=== PATIENT | male | born 1960 | race Caucasian/White ===

== ENCOUNTER 2017-05-31 15:28 | Outpatient (CLI) | payer OTHER ==
[~2017-05-31 15:28] MED LIST: AVAPRO150 MG PO; CATAFLAM50 MG PO; GLUCOPHAGE XR500 MG PO; MILLIPRED DP5 M1 PO; MOTRIN800 MG PO; NABUMETONE500 MG PO; ORPH100T PO; PERCOCET 5/3251 TAB PO; [UNRECOGNIZED DRUG - OTHER] PO
== END 2017-05-31 15:40 | disposition home or self-care (01) ==
LOC: RAD 501 15:28
DX: M17.11 Unilateral primary osteoarthritis, right knee (principal)

== ENCOUNTER 2017-08-17 12:43 | Outpatient (CLI) | payer OTHER | END 2017-08-17 13:01 | disposition home or self-care (01) | LOC: LAB 12:43 | DX: Z13.29 Encounter for screening for other suspected endocrine disorder (principal); E08.9 Diabetes mellitus due to underlying condition without complications; R80.8 Other proteinuria ==

== ENCOUNTER 2017-08-17 12:58 | Outpatient (CLI) | payer OTHER | END 2017-08-17 13:31 | disposition home or self-care (01) | LOC: SONOGRAMA 12:58 → MAMO-SONO 08-18 08:15 | DX: R80.8 Other proteinuria (principal); E08.9 Diabetes mellitus due to underlying condition without complications; Z13.29 Encounter for screening for other suspected endocrine disorder ==

== ENCOUNTER → 2017-10-18 | Outpatient (CLI) | payer OTHER | END | disposition home or self-care (01) | LOC: NUCLEAR 10-14 08:00 | DX: E05.00 Thyrotoxicosis with diffuse goiter without thyrotoxic crisis or storm (principal) | CPT/HCPCS: 78012; A9531 ==

== ENCOUNTER → 2017-10-19 | Outpatient (CLI) | payer OTHER | END | disposition home or self-care (01) | LOC: NUCLEAR 08:19 | DX: E05.00 Thyrotoxicosis with diffuse goiter without thyrotoxic crisis or storm (principal) | CPT/HCPCS: 78013; A9512 ==

== ENCOUNTER → 2020-07-11 | Outpatient (CLI) | payer OTHER | END | disposition home or self-care (01) | LOC: SONOGRAMA 11:22 | PROVIDERS: ATTEND Specialist | DX: E04.1 Nontoxic single thyroid nodule (principal); I10 Essential (primary) hypertension; Z13.29 Encounter for screening for other suspected endocrine disorder; E08.69 Diabetes mellitus due to underlying condition with other specified complication ==

== ENCOUNTER 2021-06-10 11:35 | Outpatient (CLI) | payer OTHER | END 2021-06-10 11:37 | disposition home or self-care (01) | LOC: TOM 11:35 | PROVIDERS: ATTEND Surgery | DX: K43.6 Other and unspecified ventral hernia with obstruction, without gangrene (principal); K43.9 Ventral hernia without obstruction or gangrene ==

== ENCOUNTER 2022-05-21 13:54 | Outpatient (CLI) | payer OTHER | END 2022-05-21 14:17 | disposition home or self-care (01) | LOC: SONOGRAMA 13:54 | PROVIDERS: ATTEND Specialist | DX: R80.9 Proteinuria, unspecified (principal); Z13.29 Encounter for screening for other suspected endocrine disorder ==

== ENCOUNTER 2022-06-16 10:23 | Outpatient (CLI) | payer OTHER | END 2022-06-16 10:39 | disposition home or self-care (01) | LOC: RAD 10:23 | PROVIDERS: ATTEND Specialist | DX: M25.561 Pain in right knee (principal); M25.562 Pain in left knee; E03.9 Hypothyroidism, unspecified ==